=== PATIENT | male | born 1975 | race Caucasian/White ===

== ENCOUNTER 2020-11-20 14:03 | Emergency (ER) | payer BC ==
[~2020-11-20] VITALS: Ht 167.6 cm; Wt 86.0 kg
[2020-11-20 15:41] LABS: BASOPHILS % 0.7 % (0.0-2.0); EOSINOPHILS % 1.8 % (0.0-5.0); HEMATOCRIT. 43.1 % (42.0-52.0); HEMOGLOBIN. 15.3 g/dL (14.0-18.0); LYMPHOCYTES % 16.6 % (20.0-50.0); MEAN CORPUSCULAR HEMOGLOBIN 33.2 pg (28.0-32.0); MEAN CORPUSCULAR VOLUME 93.5 fL (80.0-94.0); MEAN PLATELET VOLUME 7.3 fl (7.4-10.4); MONOCYTES % 8.6 % (2.0-8.0); NEUTROPHILS % 72.3 % (40.0-76.0); PLATELET 306 x1000/uL (130-400); RED BLOOD CELL COUNT 4.61 mill/uL (4.7-6.1); RED CELL DISTRIBUTION WIDTH 12.7 % (11.6-14.6)
[2020-11-20 15:58] LABS: CHLORIDE 105 mEq/L (98-107)
[2020-11-20 16:03] LABS: ETHANOL BLOOD < 10 mg/dL
[2020-11-20] MEDS ORDERED: LORAZEPAM 2MG/ML CPJ IM ONE (16:15)
[2020-11-20 16:43] LABS: CLARITY URINE CLEAR (CLEAR); COLOR URINE YELLOW (YELLOW); KETONES URINE NEGATIVE (NEGATIVE); LEUKOCYTE ESTERASE URINE NEGATIVE (NEGATIVE); NITRITE URINE NEGATIVE (NEGATIVE); OCCULT BLOOD URINE NEGATIVE (NEGATIVE); PROTEIN URINE 1+ (NEGATIVE); UROBILINOGEN URINE 0.2 E.U./dL (0.2-1.0)
[2020-11-20 17:07] LABS: OPIATES URINE SCREEN NEGATIVE (NEGATIVE)
[2020-11-20 17:08] LABS: *AMPHETAMINES SCREEN URINE NEGATIVE (NEGATIVE); *BARBITURATES SCREEN URINE NEGATIVE (NEGATIVE); *BENZODIAZEPINES SCREEN URINE NEGATIVE (NEGATIVE); *COCAINE SCREEN URINE NEGATIVE (NEGATIVE); CANNABINOID URINE SCREEN NEGATIVE (NEGATIVE); PHENCYCLIDINE URINE SCREEN NEGATIVE (NEGATIVE)
[2020-11-20 17:10] LABS: METHADONE URINE SCREEN NEGATIVE (NEGATIVE)
[2020-11-20] MEDS ORDERED: QUETIAPINE FUMARATE 50MG TABLET PO SCH (21:00)
[2020-11-20] MEDS: DIVALPROEX SODIUM 250MG DR TABLET PO SCH (21:09)
[2020-11-21] MEDS: DIVALPROEX SODIUM 250MG DR TABLET PO SCH (09:36)
[2020-11-21] MEDS ORDERED: QUET50TA MT (12:00)
[2020-11-21] MEDS ORDERED: DIVA250T4 MT (12:00)
[2020-11-21 19:30] VITALS: BP 122/74
== END 2020-11-21 19:30 | disposition home or self-care (01) ==
LOC: ER 14:40
DX: F31.2 Bipolar disorder, current episode manic severe with psychotic features (principal); I10 Essential (primary) hypertension; Z98.890 Other specified postprocedural states
CPT/HCPCS: 36415; 80053; 80305; 80320; 81003; 84443; 85025; 96372; 99285; J2060; Z7610; G0480